=== PATIENT | female | born 1980 | race Caucasian/White ===

== ENCOUNTER 2017-01-19 21:06 | Emergency (ER) | payer BC ==
[~2017-01-19] VITALS: Ht 170.2 cm; Wt 103.1 kg
[~2017-01-19 21:06] MED LIST: FRRS300 PO; MTR600X PO; OXYC5TAB PO; PRENTAB69 PO
[2017-01-19 21:15] VITALS: TEMP 36.5; Ht 170.2 cm; Wt 103.1 kg
[2017-01-19] MEDS ORDERED: ACETAMINOPHEN 500 MG TAB PO STA (21:41)
[2017-01-19] MEDS ORDERED: IBUPROFEN 600 MG TAB PO STA (21:41)
[2017-01-19] MEDS ORDERED: CYCLOBENZAPRINE HCL 10 MG TAB PO STA (21:41)
[2017-01-19 22:02] LABS: MANUAL MICROSCOPIC REQUIRED? NO; REVIEW REQ? YES; URINE APPEARANCE TURBID (CLEAR); URINE BILIRUBIN NEG (NEG); URINE COLOR YELLOW; URINE EPITHELIAL CELL AUTO >30 /lpf (0-5); URINE NITRITE NEG (NEG); URINE SPECIFIC GRAVITY 1.023 (1.000-1.030); UROBILINOGEN NEG (NEG)
[2017-01-19 22:04] LABS: PREG INTERNAL NEGATIVE QC NEG CLEAR BACKGROUND; PREG INTERNAL POSITIVE QC POS CONTROL LINE
[2017-01-19] MEDS ORDERED: ONDANSETRON 4MG OD TAB PO STA (22:06)
[2017-01-19] MEDS ORDERED: GLAT1INJ INJ (22:14)
[2017-01-19] MEDS ORDERED: SULFAMETHOXAZOLE/TRIMETHOPRIM DS 800/160MG TAB PO ONE (22:30)
[2017-01-19] MEDS ORDERED: OXYCODONE IR HOME PACK PO ONE (22:45)
[2017-01-19] MEDS ORDERED: ONDA4TAB10 SL (22:46)
[2017-01-19] MEDS ORDERED: SULF800T23 PO (22:46)
[2017-01-19] MEDS ORDERED: OXYC1TAB3 PO (22:46)
[2017-01-19] MEDS ORDERED: TAMS0.4C38 PO (22:46)
--- NOTE | 2017-01-19 22:48 | EMERGENCY ROOM VISIT NOTE ---
History Report prepared by Yaquelin: Davis Dodson Under the Supervision of: Dr. Harshal Chaudhry M.D. First contact with patient: 21:27 Chief Complaint: FLANK PAIN Stated Complaint: PAIN LWR R ABD, NAUSEA History of Present Illness The patient is a 37 year old white female with a past medical history of MS who presents to the ED with a cc of constant right lower back pain beginning 2.5 hours ago. Pain began after holding down son to clip his toenails. Positive lower abdominal pain, nausea, vomiting. Describes pain as "cramp-like". Negative fevers, chills. Her LNMP was 10 days ago. Patient is on Copaxone for her MS. Source of History: patient Onset: 2.5 hours ago Position: back (right lower) Quality: other ("cramp-like") Timing: constant Associated Symptoms: + nausea, + vomiting, + abdominal pain (lower), No fevers, No chills Review of Systems See HPI for pertinent positives and negatives. A total of ten systems were reviewed and were otherwise negative. Past Medical & Surgical Medical Problems: (1) Active labor at term (2) Polyhydramnios in third trimester Family History No pertinent family history stated. Social History Smoking Status: Never Smoker Housing Status: lives with family Current/Historical Medications Scheduled Glatiramer Acetate (Copaxone), 40 MG INJ 3XWK Ondasetron Odt (Zofran Odt), 4 MG SL Q6H Sulfa/Trimethoprim (Bactrim Ds 800MG/160MG), 1 TAB PO BID Tamsulosin Hcl (Flomax), 0.4 MG PO HS Scheduled PRN Oxycodone Immediate Rel Tab (Roxicodone Ir), 5 MG PO Q6H PRN for Pain Allergies Coded Allergies: Penicillins (Verified Allergy, Unknown, 04/27/09) Physical Exam Vital Signs Date Time Temp Pulse Resp B/P (MAP) Pulse Ox O2 Delivery O2 Flow Rate FiO2 01/19/17 22:58 73 18 140/68 100 Room Air 01/19/17 21:15 36.5 71 17 146/86 97 Room Air Physical Exam GENERAL: Awake, alert, well-appearing, NAD HENT: Normocephalic, atraumatic. EYES: Normal conjunctiva. Sclera non-icteric. NECK: Supple. No nuchal rigidity. FROM. RESPIRATORY: CTAB, no rhonchi, wheezing, crackles CARDIAC: RRR, no MRG ABDOMEN: Soft, NTND, BS+. No CVA TTP. MSK: No chest wall TTP, no LE edema. Right paraspinal lumbar TTP. No erythema, crepitus or calor. Negative straight leg raise. Negative Dirk test. No pain with external rotation. No saddle anesthesia and is NVI to bilateral lower extremities. NEURO: GCS 15, CN 2-12 intact, moves all 4s on command SKIN: No rash or jaundice noted. Medical Decision & Procedures Laboratory Results Test 01/19/17 21:25 Urine Color YELLOW Urine Appearance TURBID (CLEAR) Urine pH 8.0 (4.5-7.5) Urine Specific [place] 1.023 (1.000-1.030) Urine Protein NEG (NEG) Urine Glucose (UA) NEG (NEG) Urine Ketones NEG (NEG) Urine Occult Blood TRACE (NEG) Urine Nitrite NEG (NEG) Urine Bilirubin NEG (NEG) Urine Urobilinogen NEG (NEG) Urine Leukocyte Esterase TRACE (NEG) Urine WBC (Auto) 10-30 /hpf (0-5) Urine RBC (Auto) 0-4 /hpf (0-4) Urine Hyaline Casts (Auto) 1-5 /lpf (0-5) Urine Epithelial Cells (Auto) >30 /lpf (0-5) Urine Bacteria (Auto) 1+ (NEG) Urine Test NEG (NEG) Laboratory results reviewed by me Medications Administered Medications (Trade) Dose Ordered Sig/Deann Route Start Time Stop Time Status Last Admin Dose Admin Ibuprofen (Motrin Tab) 600 mg NOW STAT PO 01/19/17 21:41 01/19/17 21:43 DC 01/19/17 22:07 600 MG Acetaminophen (Tylenol Tab) 1,000 mg NOW STAT PO 01/19/17 21:41 01/19/17 21:43 DC 01/19/17 22:07 1,000 MG Cyclobenzaprine HCl (Flexeril Tab) 10 mg NOW STAT PO 01/19/17 21:41 01/19/17 21:43 DC 01/19/17 22:06 10 MG Ondansetron HCl (Zofran Odt) 4 mg NOW STAT PO 01/19/17 22:06 01/19/17 22:07 DC 01/19/17 22:14 4 MG Trimethoprim/ Sulfamethoxazole (Septra Ds 800/ 160MG Tab) 1 tab NOW ONCE PO 01/19/17 22:30 01/19/17 22:31 DC 01/19/17 22:56 1 TAB Oxycodone HCl (Roxicodone Immediate Rel 5MG Home Pack) 1 homepack UD ONCE PO 01/19/17 22:45 01/19/17 22:46 DC 01/19/17 22:57 1 HOMEPACK ED Course 2132: The patient was evaluated in room C2B. A complete history and physical exam was performed. 2239: I reevaluated the patient. Discussed results and discharge instructions: she verbalized understanding and agreement. The patient is ready for discharge. Medical Decision The patient is a 37 year old white female with a past medical history of MS who presents to the ED with a cc of constant right flank pain beginning 2.5 hours ago. Differential diagnosis: Etiologies such as appendicitis, diverticulitis, PUD, biliary pathology, UTI, pancreatitis, obstruction, mesenteric ischemia, aortic pathology, infections, inflammatory bowel disease, renal colic, as well as others were entertained. Patient was seen and evaluated at the bedside. Patient was complaining of some right-sided lower back pain in addition to some nausea with vomiting. Patient has no prior history of kidney stone. Patient denies any increased urinary for frequency or hematuria. Patient's last menstrual period was approximately one to 2 weeks prior and is not ongoing. Patient does not take any medication prior to arrival. Patient denies any other infectious symptoms. Patient does have a history of MS and does take medications. On exam patient does not have any lower extremity deficits. Patient has no saddle anesthesia. Patient is not had any bowel or bladder incontinence or retention. She denies any trauma does not take any blood thinning medications. Patient did have a urinalysis that was completed which showed likely hemorrhagic cystitis. However, given the patient did have some nausea and one episode of vomiting we decided to treat her as a possible kidney stone as well. Patient did not have any true CVA tenderness to palpation on exam there pain was more in the lower lumbar area. Furthermore, patient was feeling improved after giving pain medicine anti -medics. Patient was comfortable with not pursuing further imaging at this time. Patient was given a first dose antibiotic here. Patient was given pain medication, antiemetics, Flomax, and antibiotics for home use. Patient was told return if she is unable to tolerate her by mouth medications or she had worsening nausea vomiting fever or urinary retention. Patient was given strict follow-up, discharge, and return precautions. All questions were answered. Patient was deemed suitable for outpatient follow-up at this time. Patient agreed with the plan of care and was safely discharged home. Medication Reconcilliation Current Medication List: was personally reviewed by me Blood Pressure Screening Patient's blood pressure: Elevated blood pressure Blood pressure disposition: Elevated BP felt to be situational Impression Primary Impression: UTI (urinary tract infection) Scribe Attestation The scribe's documentation has been prepared under my direction and personally reviewed by me in its entirety. I confirm that the note above accurately reflects all work, treatment, procedures, and medical decision making performed by me. Departure Information Dispostion Home / Self-Care Prescriptions Sulfa/Trimethoprim (Bactrim Ds 800MG/160MG) Tab 1 TAB PO BID for 7 Days, #14 TAB Prov: Harshal Chaudhry M.D. 01/19/17 Ondasetron Odt (ZOFRAN ODT) 4 Mg Tab 4 MG SL Q6H for Nausea, #12 TAB Prov: Harshla Chaudhry M.D. 01/19/17 Oxycodone Immediate Rel Tab (ROXICODONE IR) 5 Mg Tab 5 MG PO Q6H Y for Pain, #12 TAB Prov: Harshal Chaudhry M.D. 01/19/17 Tamsulosin Hcl (FLOMAX) 0.4 Mg Cap 0.4 MG PO HS, #10 CAP Prov: Harshal Chaudhry M.D. 01/19/17 Referrals [facility] (PCP) Patient Instructions ED UTI Cystitis Female, My [facility] Additional Instructions Please return to the emergency department if you have worsening or recurrent symptoms not amenable to at-home treatment. Please call for a follow-up appointment with her primary care physician. Please take your medications as prescribed. If you have other concerns and/or complaints please feel free to also call your primary care physician's office or return the ED for further evaluation, management, and treatment. You received narcotic or benzodiazepene medication while in the emergency room today. This is an addictive medication that may cause drowziness as well as constipation. Do not drive, operate heavy machinery, or drink alcohol under the influence of this medication. You may take 600 mg Ibuprofen every 6 hours as needed for pain with food for no more than 2 consecutive days. You may take tylenol 1000 mg every 6 hours as needed for pain. You may take motrin and tylenol separately or at the same time. Take the oxycodone only if you have worsening pain. Take your medications as prescribed. If taking an antibiotic consider taking a probiotic and/or eating yogurt, but at the least, please take with food as it can cause upset stomach. You have been examined and treated today on an emergency basis only. This is not a substitute for, or an effort to provide, complete comprehensive medical care. It is impossible to recognize and treat all injuries or illnesses in a single emergency department visit. It is therefore important that you follow up closely with [facility], your PCP, and/or your specialist(s). Call as soon as possible for an appointment. Thank you for your time and consideration. I look forward to speaking with you again soon. Please don't hesitate to call us if you have any questions. Problem Qualifiers Primary Impression: UTI (urinary tract infection) Urinary tract infection type: acute cystitis Hematuria presence: with hematuria Qualified Codes: N30.01 - Acute cystitis with hematuria
[2017-01-19 22:58] VITALS: BP 140/68; PULSE 73; O2SAT 100
== END 2017-01-19 23:18 | disposition home or self-care (01) ==
LOC: C.EDB 21:08 → C.EDC 23:18
DX: N30.01 Acute cystitis with hematuria (principal)